=== PATIENT | male | born 2000 | race Hispanic/Latino ===

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

== ENCOUNTER 2025-06-25 16:25 | Emergency (ER) | payer BC ==
--- OUTSIDE RECORDS SUMMARY | 2025-06-25 16:29 | XMS REPORT | Continuity of Care Document ---
Author Name Unknown Address [address] [facility] [address] [place] [address] [facility] [place] Address [address] [facility] [address] [place] [address] Care Team Providers Care Director Money Name Role Phone Naz Staley Primary Care Physician + [phone] Naz Staley Attending Clinician [phone] MURPHY HOWE Attending Clinician Unavailable Murphy Howe MD Attending Clinician [phone] NAZ LEE Attending Clinician Unavailable Alvarez Handley - Luiz Attending Clinician Unavailable JACKSON RAMOS Attending Clinician UnavailROSEMARY Us Attending Clinician Unavailable Rosemary Gayle DO Attending Clinician [phone] MURPHY HOWE Admitting Clinician Unavailable NAZ LEE Admitting Clinician Unavailable Payers Payer Name Policy Type Policy Number Effective Date Expirati on Date Source [facility] 2 [id number] 2022 00:00:00 Problems Condition Name Condition Details Condition Category Status Onset Date Resolution Date Last Treatment Date Treating Clinician Comments Source Biliary dyskinesia Biliary dyskinesia Disease Active 06-02 00:00: 00 [facility] Upper abdominal pain Upper abdominal pain Disease Active 06-02 00:00: 00 [facility] Tonsilliti s Tonsilliti s Disease Active 05-20 00:00: 00 Nohelia dela cruz Allergies, Adverse Reactions, Alerts Allergy Name Allergy Type Status Severity Reaction(s) Onset Date Inactive Date Treating Clinician Comments Source NO KNOWN ALLERGIE S Drug Class Active [facility] Social History Social Habit Start Date Stop Date Quantity Comments Source [facility] Alcoholic beverage intake 2025-05-17 00:00:00 2025-05-17 00:00:00 Ex-drinker (finding) [facility] History of Social function 2025-05-17 00:00:00 2025-05-17 00:00:00 [facility] Tobacco use and exposure 2025-05-17 00:00:00 2025-05-17 00:00:00 Smokeless tobacco non-user [facility] Alcohol intake 2022-07-17 00:00:00 2022-07-17 00:00:00 Lifetime non-drinker (finding) Nohelia Damian - External Education 2022-05-20 00:00:00 2022-05-20 00:00:00 16 Nohelia Damian - External Sex assigned at 2000 00:00:00 2000 00:00:00 [facility] Smoking Status Start Date Stop Date Source Never smoked tobacco [facility] Medications Ordered Medication Name Filled Medication Name Start Date Stop Date Current Medication? Ordering Clinician Indication Dosage Frequency Signature (SIG) Comments Components Source HYDROcodone -acetaminop hen (NORCO 5) 5-325 mg tablet 1 tablet 06-16 17:00: 00 06-16 17:36 :00 No 1{tbl} 1 tablet, Oral, ONCE, 1 dose, On Thu06/16/25 at 1200, Routine, PACU [facility] HYDROmorphO ne (DILAUDID) injection 0.2 mg 06-16 16:45: 11 06-16 22:17 :56 No .2mg 0.2 mg, Slow IV Push, Q5MIN PRN, 10 doses, Starting on Thu06/16/25 at 1145, Until Thu06/16/25 at 1717, Routine, Pain (scale 7-10), PACU, Is this medication approved by a Faculty level provider? 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 Restricted medication : PACU RECOVERY [facility] fentanyl PF (SUBLIMAZE (PF)) injection 25 mcg 06-16 16:45: 11 06-16 22:17 :56 No 25ug 25 mcg, Slow IV Push, Q5MIN PRN, 4 doses, Starting on Thu06/16/25 at 1145, Until Thu06/16/25 at 1717, Routine, Pain Scale 4-6, PACU [facility] Sliding Scale Insulin - Lispro (HumaLOG) 06-16 16:45: 11 06-16 22:17 :56 No Subcutaneo us, PRN - SEE INSTRUCTIO NS, 1 dose, Starting on Thu06/16/25 at 1145, Until Thu06/16/25 at 1717, Routine, PACU [facility] sodium chloride 0.9 % irrigation solution 06-16 15:25: 00 06-16 16:36 :37 No PRN, Starting on Thu06/16/25 at 1025, Until Thu06/16/25 at 1136, Intra-op [facility] bupivacaine -epinephrin e-pf (SENSORCAIN E W/EPINEPHRI NE) 0.25 %-1:200,000 30 mL, lidocaine 1% (PF) (XYLOCAINE) 30 mL 06-16 14:24: 00 06-16 16:36 :37 No PRN, Starting on Thu06/16/25 at 0924, Intra-op [facility] water for irrigation irrigation solution 06-16 14:23: 00 06-16 16:36 :37 No PRN, Starting on Thu06/16/25 at 0923, Until Thu06/16/25 at 1136, Routine, Intra-op [facility] indocyanine green (CARDIO-GRE EN) injection 2.5 mg 06-16 12:45: 00 06-16 13:06 :00 No 2.5mg 2.5 mg, Intravenou s, ONCE, 1 dose, On Thu06/16/25 at 0745, Routine, DSU Pre-op [facility] lactated ringers IV infusion 1,000 mL 06-16 12:45: 00 06-16 12:54 :00 No 1000mL at 42 mL/hr, 1,000 mL, IV Infusion, ONCE, 1 dose, On Thu06/16/25 at 0745, Routine, DSU Pre-op [facility] ibuprofen 800 mg tablet 06-16 00:00: 00 Yes [id number] 800mg Take 1 tablet by mouth every 6 hours as needed for Pain (scale 4-6). [facility] HYDROcodone -acetaminop hen 5-325 mg tablet 06-16 00:00: 00 06-24 04:59 :00 Yes [id number] 1{tbl} Take 1 tablet by mouth every 6 hours as needed for Pain (scale 7-10) for up to 7 days. [facility] iopamidol (ISOVUE 370-500 mL) injection 75 mL 05-29 18:30: 00 05-29 17:36 :00 No [id number] 75mL 75 mL, Intravenou s, ONCE, 1 dose, On Thu05/29/25 at 1330, Routine [facility] tc 99m-mebrofe keesha (CHOLETEC) injection 9 millicurie 05-29 15:45: 00 05-29 15:40 :00 No [id number] 9mCi 9 millicurie , Intravenou s, ONCE, 1 dose, On Thu05/29/25 at 1045, Routine [facility] ondansetron 4 mg tablet 05-17 00:00: 00 06-01 00:00 :00 No [id number] 4mg Take 1 tablet by mouth every 8 hours as needed for Nausea and Vomiting (N/V). [facility] Amoxicillin -Pot Clavulanate 875-125 MG oral Tablet 16 00:00: 00 Yes [id number] 1{tbl} Take 1 tablet by mouth 2 times daily Nohelia dela cruz Tretinoin 0.05 % apply externally Cream 02-21 00:00: 00 Yes Nohelia dela cruz Vital Signs Vital Name Observation Time Observation Value Comments S edmar Systolic blood pressure 2025-06-16 18:15:00 135 mm[Hg] [facility] Diastolic blood pressure 2025-06-16 18:15:00 96 mm[Hg] [facility] Heart rate 2025-06-16 18:15:00 79 /min [facility] Respiratory rate 2025-06-16 18:15:00 18 /min [facility] Oxygen saturation in Arterial blood by Pulse oximetry 2025-06-16 18:15:00 100 /min [facility] Body temperature 2025-06-16 16:31:00 36.22 Jazmin [facility] Body height 2025-06-16 12:47:00 165.1 cm [facility] Body weight 2025-06-16 12:47:00 60.328 kg [facility] BMI 2025-06-16 12:47:00 22.13 kg/m2 [facility] Systolic blood pressure 2025-06-16 17:35:00 134 mm[Hg] [facility] Diastolic blood pressure 2025-06-16 17:35:00 80 mm[Hg] [facility] Heart rate 2025-06-16 17:35:00 92 /min [facility] Respiratory rate 2025-06-16 17:35:00 16 /min [facility] Oxygen saturation in Arterial blood by Pulse oximetry 2025-06-16 17:35:00 100 /min [facility] Body temperature 2025-06-16 16:31:00 36.22 Jazmin [facility] Body height 2025-06-16 12:47:00 165.1 cm [facility] Body weight 2025-06-16 12:47:00 60.328 kg [facility] BMI 2025-06-16 12:47:00 22.13 kg/m2 [facility] Systolic blood pressure 2025-06-01 14:04:00 114 mm[Hg] [facility] Diastolic blood pressure 2025-06-01 14:04:00 77 mm[Hg] [facility] Heart rate 2025-06-01 14:04:00 83 /min [facility] Body temperature 2025-06-01 14:04:00 36.94 Jazmin [facility] Body height 2025-06-01 14:04:00 165.1 cm [facility] Body weight 2025-06-01 14:04:00 60.328 kg [facility] BMI 2025-06-01 14:04:00 22.13 kg/m2 [facility] Oxygen saturation in Arterial blood by Pulse oximetry 2025-06-01 14:04:00 100 /min [facility] Systolic blood pressure 2025-05-25 14:00:00 121 mm[Hg] [facility] Diastolic blood pressure 2025-05-25 14:00:00 77 mm[Hg] [facility] Heart rate 2025-05-25 14:00:00 82 /min [facility] Body temperature 2025-05-25 14:00:00 37 Jazmin [facility] Respiratory rate 2025-05-25 14:00:00 16 /min [facility] Body height 2025-05-25 14:00:00 165.1 cm per patient [facility] Body weight 2025-05-25 14:00:00 59.875 kg [facility] BMI 2025-05-25 14:00:00 21.97 kg/m2 [facility] Oxygen saturation in Arterial blood by Pulse oximetry 2025-05-25 14:00:00 98 /min [facility] Systolic blood pressure 2025-05-17 18:36:00 129 mm[Hg] [facility] Diastolic blood pressure 2025-05-17 18:36:00 88 mm[Hg] [facility] Heart rate 2025-05-17 18:36:00 94 /min [facility] Body temperature 2025-05-17 18:36:00 36.78 Jazmin [facility] Body height 2025-05-17 18:36:00 165.1 cm [facility] Body weight 2025-05-17 18:36:00 60.238 kg [facility] BMI 2025-05-17 18:36:00 22.10 kg/m2 [facility] Oxygen saturation in Arterial blood by Pulse oximetry 2025-05-17 18:36:00 98 /min [facility] Systolic blood pressure 2022-07-17 18:22:00 110 mm[Hg] Nohelia Seybo ld - External Diastolic blood pressure 2022-07-17 18:22:00 58 mm[Hg] Nohelia Seybo ld - External Heart rate 2022-07-17 18:22:00 89 /min Bradleyse y Seybold - External Body temperature 2022-07-17 18:22:00 36.94 Jazmin Nohelia Seybold - External Respiratory rate 2022-07-17 18:22:00 14 /min Nohelia Seybold - External Body height 2022-07-17 18:22:00 165.1 cm Georgiana ey Seybold - External Body weight 2022-07-17 18:22:00 66.225 kg Georgiana ey Seybold - External BMI 2022-07-17 18:22:00 24.30 kg/m2 Georgiana ey Seybold - External Oxygen saturation in Arterial blood by Pulse oximetry 2022-07-17 18:22:00 99 /min Noheliasherry Thomas bold - External Procedures Procedure Date / Time Performed Performing Clinician Source [id number] - MS LAPAROSCOPY SURG CHOLECYSTECTOMY 2025-06-16 13:53:00 Murphy Howe [facility] CT ABDOMEN PELVIS W CONTRAST 2025-05-29 17:36:27 Murphy Howe [facility] HEPATOBILIARY W INTERVENTION 2025-05-29 17:32:00 Murphy Howe [facility] NM HEPATOBILIARY W INTERVENTION 2025-05-29 17:32:00 Murphy Howe [facility] US ABDOMEN LIMITED 2025-05-18 14:25:08 Naz Lee [facility] AMYLASE 2025-05-17 19:39:00 Naz Lee [facility] LIPASE 2025-05-17 19:39:00 Naz Lee [facility] COMP. METABOLIC PANEL ([id number]) 2025-05-17 19:39:00 Naz Lee [facility] CBC WITH DIFF 2025-05-17 19:39:00 [facility] 2025-05-17 19:02:00 Dorothy Lee [facility] POCT MOLECULAR FLU 2025-05-17 18:56:00 Naz Lee [facility] Encounters Start Date/Time End Date/Time Encounter Type Admission Type Attending [facility] Facility Care Department Encounter ID Source 2025-05-23 00:00:00 2025-06-24 18:25:43 Patient Secure Msg Naz Lee [facility] 1.2.840.114 350.1.13.10 4.2.7.2.686 [id number] [facility] 2025-06-16 07:35:00 2025-06-16 13:15:00 Hospital Encounter R MURPHY HOWE [facility] SPIKE [id number] [facility] 2025-06-16 08:55:00 2025-06-16 12:39:00 Surgery Murphy Howe [facility] 1.2.840.114 350.1.13.10 4.2.7.2.686 [id number] [facility] 2025-06-09 00:00:00 2025-06-09 14:48:53 Patient Secure Murphy Neff [facility] NAL BUILDING 1.2.840.114 350.1.13.10 4.2.7.2.686 [id number] [facility] 2025-06-09 00:00:00 2025-06-09 14:04:15 Patient Secure [facility] 1.2.840.114 350.1.13.10 4.2.7.2.686 [id number] [facility] 2025-06-02 00:00:00 2025-06-02 15:39:34 Telephone HoweMurphy [facility] [place] [facility] 1.2.840.114 350.1.13.10 4.2.7.2.686 [id number] [facility] 2025-06-02 00:00:00 2025-06-02 11:12:28 Telephone [facility] 1.2.840.114 350.1.13.10 4.2.7.2.686 [id number] [facility] 2025-06-01 00:00:00 2025-06-01 14:03:01 Patient Secure Msg [facility] 1.2.840.114 350.1.13.10 4.2.7.2.686 [id number] [facility] 2025-06-01 00:00:00 2025-06-01 13:19:49 Patient Secure Msg Murphy Howe [facility] 1.2.840.114 350.1.13.10 4.2.7.2.686 [id number] [facility] 2025-06-01 09:15:00 2025-06-01 09:59:58 Office Visit R Murphy Howe [facility] 1.2.840.114 350.1.13.10 4.2.7.2.686 [id number] [facility] 2025-05-29 09:32:12 2025-05-29 23:59:00 Hospital Encounter R ALONZO MURPHYDARLIN BRASHER [facility] 1.2.840.114 350.1.13.10 4.2.7.2.686 [id number] [facility] 2025-05-29 09:31:59 2025-05-29 09:31:59 Hospital Encounter R MURPHY HOWE [facility] 1.2.840.114 350.1.13.10 4.2.7.2.686 [id number] [facility] 2025-05-29 09:31:48 2025-05-29 09:31:48 Hospital Encounter R MURPHY HOWE [facility] 1.2.840.114 350.1.13.10 4.2.7.2.686 [id number] [facility] 2025-05-25 00:00:00 2025-05-25 17:00:21 Telephone Murphy Howe [facility] 1.2.840.114 350.1.13.10 4.2.7.2.686 [id number] [facility] 2025-05-25 09:00:00 2025-05-25 09:40:45 Office Visit R Murphy Howe [facility] 1.2.840.114 350.1.13.10 4.2.7.2.686 [id number] [facility] 2025-05-22 00:00:00 2025-05-24 12:55:43 Telephone Naz Lee [facility] OFF[facility] BU[facility] 1.2.840.114 350.1.13.10 4.2.7.2.686 [id number] [facility] 2025-05-24 00:00:00 2025-05-24 08:15:11 Patient Secure Msg Naz Lee [facility] OFF[facility] BUILD[facility] 1.2.840.114 350.1.13.10 4.2.7.2.686 [id number] [facility] 2025-05-23 00:00:00 2025-05-23 20:28:18 Telephone Naz Lee [facility] MED[facility] OFFICE BUILDING 1.2.840.114 350.1.13.10 4.2.7.2.686 [id number] [facility] 2025-05-18 08:54:52 2025-05-18 23:59:00 Hospital Encounter R JOHANN LEELIE [facility] 1.2.840.114 350.1.13.10 4.2.7.2.686 [id number] [facility] 2025-05-17 14:30:00 2025-05-17 14:45:00 Mac Developer Visit R Ender, Ang - Db Naz Lee Lab, Ang - Db [facility] MED[facility] OFF[facility] BUILD[facility] 1.2.840.114 350.1.13.10 4.2.7.2.686 [id number] [facility] 2025-05-17 13:30:00 2025-05-17 14:28:40 Office Visit R Naz Lee [facility] MED[facility] OFFICE BUILDING 1.2.840.114 350.1.13.10 4.2.7.2.686 [id number] [facility] 2023-04-01 13:30:00 2023-04-01 13:30:00 Outpatient JACKSON RAMOS [id number] Nohelia Damian 2023-04-01 00:00:00 2023-04-01 00:00:00 Outpatient ROSEMARY GAYLE [id number] [facility] 2023-03-31 15:15:00 2023-03-31 15:15:00 Outpatient JACKSON RAMOS [id number] Nohelia Damian 2022-07-17 13:30:00 2022-07-17 13:30:00 Outpatient ROSEMARY GAYLE [id number] Nohelia Damian 2022-05-20 09:00:00 2022-05-20 09:30:00 Office Visit Rosemary Gayle 1.2.840.114 350.1.13.13 1.2.7.2.686 [id number] Nohelia Damian Results Test Description Test Time Test Comments Results Resul t Comments Source CT Abdomen pelvis w contrast 2025-05-06 5 21:39:48 EXAM: CT ABDOMEN PELVIS W CONTRAST HISTORY: 24 years-old Male; upper abdominal pain. TECHNIQUE: Contiguous axial imaging from the level of the lung basesthrough the proximal thighs was performed with intravenous contrast.Coronal and sagittal reconstructions were obtained. COMPARISON: None FINDINGS: LOWER THORAX: The lung bases are clear. LIVER: The liver is normal in size and contour. No focal hepatic lesion isseen. GALLBLADDER AND BILIARY TREE: The gallbladder appears unremarkable. Noradiopaque gallstones are seen. No intra or extrahepatic biliary ductaldilation is visualized. SPLEEN: The spleen appears unremarkable. PANCREAS: No ductal dilation or masses are visualized. ADRENAL GLANDS: No adrenal masses are seen. KIDNEYS: No hydronephrosis, stones, or suspicious masses are visualized. PELVIS/BLADDER: Reproductive organs are unremarkable. The bladder isadequately distended and appears unremarkable. GI TRACT: No dilation or bowel wall thickening is seen. The appendixappears unremarkable. PERITONEUM AND RETROPERITONEUM: No intra-abdominal free air or fluidcollection is visualized. LYMPH NODES: No lymphadenopathy. VESSELS: The vessels appear unremarkable. BONES AND SOFT TISSUES: No suspicious lytic or sclerotic bony lesions arepresent. [facility] US Abdomen limited 2025-05-05 4 18:28:36 EXAM: US ABDOMEN LIMITED HISTORY: 24 years-old Male with RUQ pain x 3 days . TECHNIQUE: Limited abdominal ultrasound was performed focused on the liver,biliary system, pancreas and spleen. Main portal vein was evaluated withcolor and spectral Doppler imaging. Cream Maker images were obtained forthe record. COMPARISON: None FINDINGS: AORTA:Abdominal aorta is normal in caliber where visualized. Diameter of theproximal abdominal aorta is 1.9 cm. IVC:IVC is normal in appearance where visualized. PANCREAS: The pancreatic head and body display normal echogenicity to the extentvisualized. LIVER: Length: 13.5 cm.Parenchyma/Contou r: Unremarkable.. No focal lesion is detected.Portal vein: Hepatopetal flow present in the main portal vein.MPV diameter: 0.7 cm.MPV velocity: 31.4 cm/s. GALLBLADDER:The gallbladder is distended with length up to 9.2 cm.No cholelithiasis.Jolie l gallbladder wall thickness, 2 mm.Negative Gee's sign.. No evidence of pericholecystic fluid. BILE DUCTS:No intra- or extrahepatic biliary dilatation..Common Duct diameter: 1.3 mm. SPLEEN: The spleen is not evaluated. OTHER: Imaged portions of the right kidney are unremarkable. [facility] Test Item Value Reference Range Interpretation Comme nts LIPASE (test code = 5231812113) 37 U/L 0-220 Lab Interpretation (test cod e = 41111-4) [facility] 03:22:25* Test Item Value Reference Range Interpretation Comme nts LENIN (test code = 0637373874) 63 U/L 35-110 Lab Interpretation (test cod e = 08310-6) Normal [facility] with [id number] 21:10:52* Test Item Value Reference Range Interpretation Comme nts WBC (test code = 6690-2) 6.93 4.20-10.70 RBC (test code = 789-8) 5.3 4.26-5.52 HGB (test code = 718-7) 16.1 g/dL 12.2-16.4 HCT (test code = 4544-3) 46.3 % 38.4-49.3 MCV (test code = 787-2) 87.4 fL 81.7-95.6 MCH (test code = 785-6) 30.4 pg 26.1-32.7 MCHC (test code = 786-4) 34.8 g/dL 31.2-35.0 RDW-SD (test code = 56070-1) 40.2 fL 38.5-51.6 RDW-CV (test code = 788-0) 12.6 % 12.1-15.4 PLT (test code = 777-3) 214 150-328 MPV (test code = 90767-8) 10.5 fL 9.8-13.0 NRBC/100 WBC (test code = 9138339000) 0 0.0-10.0 NRBC x10^3 (test code = 8584578889) See_Comment [Automated messa ge] The system which generated this result transmitted reference range: 10*3/?L. The reference range was not used to interpret this result as normal/abnormal. GRAN MAT (NEUT) % (test code = 770-8) 69 % IMM GRAN % (test code = 8403946819) 0.1 % LYMPH % (test code = 736-9) 22.8 % MONO % (test code = 5905-5) 7.6 % EOS % (test code = 713-8) 0.1 % BASO % (test code = 706-2) 0.4 % GRAN MAT x10^3(ANC) (test code = 0161778735) 4.77 10*3/uL 1.99-6.95 IMM GRAN x10^3 (test code = 7684202093) 0.00-0.06 LYMPH x10^3 (test code = 731-0) 1.58 10*3/uL 1.09-3.23 MONO x10^3 (test code = 742-7) 0.53 10*3/uL 0.36-1.02 EOS x10^3 (test code = 711-2) 0.06-0.53 L BASO x10^3 (test code = 704-7) 0.03 10*3/uL 0.01-0.09 Lab Interpretation (test code = 88571-7) Abnormal [facility] Molecular [id number] 19:12:00* Test Item Value Reference Range Interpretation Comme nts SARS-CoV-2 Rapid ID NOW (test code = 73135-2) Not Detected Not Detected HARRY (test code = HARRY) ID NOW COVID-19 As say is an isothermal nucleic acid amplification test intended for the qualitative detection of nucleic acid from SARS-CoV-2 viral RNA in nasopharyngeal ([employer]RO[employer]IST) specimens. It is used under Emergency Use Authorization (EUA) by FDA. The limit of detection (LOD) of the assay is 125 Genome Equivalents/mL. Please note that a new specimen is requested for testing, if clinically indicated, on tests performed past validated specimen stability time. A positive result is indicative of the presence of SARS-CoV-2 RNA. ?Clinical correlation with patient history and other diagnostic information is necessary to determine patient infection status. A negative (Not Detected) result does not preclude SARS-CoV-2 infection. In patients with a high suspicion of SARS-CoV-2 infection, negative results should be treated as presumptive negative and a new specimen should be tested with alternative nucleic acid amplification molecular test. Indeterminate: Unable to generate a valid test result on this specimen. ?Please collect a new specimen for repeat testing if clinically indicated. Lab Interpretation (test code = 06194-3) [facility] [id number] 19:07:58* Test Item Value Reference Range Interpretation Comme nts POCT Molecular FluA (test co de = 35793-7) Negative Negative POCT Molecular FluB (test co de = 70708-2) Negative Negative Lab Interpretation (test cod e = 87360-3) Normal [facility] History and Physical Notes Date/Time Note Provider Source 2025-06-16 08:59:28 Images from the original note were not included. Surgery Pre-Op Note/Updated History and Physical: Date of Service: 06/16/2025 No changes from H&P from clinic visit dated 05/31/2025 and pasted below. To OR for robotic assisted laparoscopic cholecystectomy possible open. The procedure was discussed with the patient, including risks, benefits, and alternatives, and all questions answered. Consent signed and in chart. The patient reports feeling well and denies any changes in their clinical condition, diagnoses, medications, or surgical history since they were last seen. Brett Melchor MD 06/16/2025 9:00 AM General Surgery PGY 4 GENERAL SURGERY CLINIC NOTE 06/01/2025 Visit Type: Clinic Note / History and Physical Chief Complaint: Abdominal pain HPI Dustin Farnsworth is a 24 year old male with a past medical history including acid reflux, gastritis, abnormal findings of EGD and colonoscopy who presents for evaluation of right upper quadrant abdominal pain and discussion of imaging results. Patient reports that he has experienced 1 episode of right upper quadrant abdominal pain since his previous clinic visit this morning. He rates the pain a 4/10 in severity and lasting approximately 4-5 minutes. He denies eating any fatty/greasy foods prior to the episode. The pain was alleviated by compression of the RUQ with a pillow and use of Tylenol. Additionally, he reports mild RUQ pain with CCK administration during HIDA scan and having an episode of watery diarrhea after the HIDA scan on Thursday. Patient denies any fever, chills, nausea, or vomiting associated with his symptoms. Past Medical History Past Medical History: Diagnosis Date Acid reflux Past Surgical History Past Surgical History: Procedure Laterality Date COLONOSCOPY Family History Family History Problem Relation Age of Onset No Significant Medical Problems Mother No Significant Medical Problems Father Social History Social History Socioeconomic History Marital status: Single Tobacco Use Smoking status: Never Smokeless tobacco: Never Substance and Sexual Activity Alcohol use: Not Currently Drug use: Never Allergies No Known Allergies Current Medications Current Facility-Administered Medications Medication Dose Route Frequency Last Rate Last Admin ceFAZolin (ANCEF) 1,000 mg in NaCl 0.9% (NS) 100 mL V2B IV Piggyback 1,000 mg Intravenous O.R. HOLDING ONCE Sliding Scale Insulin - Lispro (HumaLOG) Subcutaneous PRN - SEE INSTRUCTIONS Review of Systems Constitutional: (-) weight loss, (-) fatigue, (-) fever, (-) chills Cardiovascular: (-) palpitations, (-) chest pain, (-) syncope Respiratory: (-) shortness of breath, (-) cough, (-) hemoptysis Gastrointestinal: (+) abdominal pain, (-) anorexia, (+) nausea, (+) vomiting, (-) diarrhea, (+) constipation, (-) melena, (-) hematochezia Genitourinary: (-) hematuria, (-) dysuria Physical Exam BP 125/85 | Pulse 83 | Temp 36.8 ?C (98.2 ?F) (Temporal Artery) | Resp 21 | Ht 1.651 m (5' 5") | Wt 60.3 kg (133 lb) | SpO2 99% | BMI 22.13 kg/m? Constitutional: alert and oriented, no acute distress EENT: no scleral icterus. Chest: symmetric, no deformities, no chest wall tenderness Respiratory: non labored on room air Cardiovascular: regular rate and rhythm Gastrointestinal: soft, no masses, normal bowel sounds, nontender, nondistended, no rebound or guarding. Negative Gee sign. Skin: no jaundice. GI RECORDS Radiology CT ABDOMEN PELVIS W CONTRAST (05/29/2025) HISTORY: 24 years-old Male; upper abdominal pain. TECHNIQUE: Contiguous axial imaging from the level of the lung bases through the proximal thighs was performed with intravenous contrast. Coronal and sagittal reconstructions were obtained. COMPARISON: None FINDINGS: LOWER THORAX: The lung bases are clear. LIVER: The liver is normal in size and contour. No focal hepatic lesion is seen. GALLBLADDER AND BILIARY TREE: The gallbladder appears unremarkable. No radiopaque gallstones are seen. No intra or extrahepatic biliary ductal dilation is visualized. SPLEEN: The spleen appears unremarkable. PANCREAS: No ductal dilation or masses are visualized. ADRENAL GLANDS: No adrenal masses are seen. KIDNEYS: No hydronephrosis, stones, or suspicious masses are visualized. PELVIS/BLADDER: Reproductive organs are unremarkable. The bladder is adequately distended and appears unremarkable. GI TRACT: No dilation or bowel wall thickening is seen. The appendix appears unremarkable. PERITONEUM AND RETROPERITONEUM: No intra-abdominal free air or fluid collection is visualized. LYMPH NODES: No lymphadenopathy. VESSELS: The vessels appear unremarkable. BONES AND SOFT TISSUES: No suspicious lytic or sclerotic bony lesions are present. IMPRESSION No abnormality to explain patient's symptoms. HEPATOBILIARY SCAN (05/29/2025) CLINICAL HISTORY: RUQ abdominal pain, US nondiagnostic . COMPARISON: Abdominal pain. TECHNIQUE: The patient received an intravenous injection of 9 mCi technetium 99m mebrofenin and sequential images of the abdomen were obtained over one hour. Additional 30 minutes sequential images were obtained after the oral administration of ensure FINDINGS: Normal hepatic uptake and biliary excretion. Gallbladder is visualized normally with filling noted at 11 minutes. There is normal biliary to bowel transit. Gallbladder ejection fraction was 20%. IMPRESSION Reduced gallbladder ejection fraction suggestive for biliary dyskinesia. Assessment Dustin Mario Farnsworth is a 24 year old male with a past medical history including acid reflux and gastritis who presents for evaluation of right upper quadrant abdominal pain and discussion of imaging results. HIDA scan finding of gallbladder ejection fraction of 20%, gallbladder hydrops on ultrasound, and intermittent RUQ pain occasionally associated with consumption of fatty/greasy foods are suggestive of biliary colic due to biliary dyskinesia. In 2021 he was worked up for epigastric abdominal pain by Dr. Deleon and was found to have gastritis with linear erosions, duodenitis with ulcerations in the duodenal bulb with stenosis. Biopsies were performed and demonstrated esophagitis with eosinophils, gastropathy, and mild duodenal intraepithelial lymphocytosis, H. Pylori was negative. He was treated medically with antacids and a repeat EGD was performed which demonstrated gastritis, resolution of ulcers, improved duodenitis, improved pyloric stenosis. Pathology was unremarkable. He also underwent colonoscopy which demonstrated an erosion in the ascending colon, pathology was unremarkable. We discussed that his current symptoms are most likely secondary to biliary dyskinesia however due to his prior history discussion with his GI may be beneficial, including repeating EGD. He would like to discuss his options with his family first before making a decision regarding surgery. Plan - Discussed diagnosis of biliary dyskinesia and definitive treatment with elective robotic-assisted laparoscopic cholecystectomy. The risks, benefits and alternatives for surgical intervention as well as the postoperative recovery expectations were discussed. All questions were answered. - Patient will discuss his options as to whether consult with his Software Test Specialist prior to cholecystectomy with his family and call office when he is ready to schedule surgery. GENO Alfonso-S2 General Surgery Attending Attestation: I personally evaluated and examined the patient on 06/01/2025 and agree with RASTA Wing's note as written and subsequently edited by me. Murphy Howe M.D. 06/16/2025 09:00 Cosigned by Murphy Howe MD at 06/16/2025 9:02 AM CDT Associated attestation - Murphy Howe MD - 06/16/2025 9:02 AM CDT Attending Attestation: I personally evaluated and examined the patient on 06/16/[address] Melchor's note as written. I actively participated in the decision-making process. Please see the resident's note for additional details. No interval changes, patient continues with intermittent upper abdominal pain, surgery consent signed and in chart, proceed with robotic assisted laparoscopic cholecystectomy. Murphy Howe M.D. 06/16/2025 09:01 SURGERY [facility] Notes Date/Time Note Provider Source 2025-06-16 11:06:36 Called Mei to give her surgery update and that the next call will come from Recovery. No questions or concerns at this time. Verbalized understanding. Tierney Reina RN [facility] 2025-06-16 10:02:46 Called mother, Mei, to give surgery update. No questions or concerns at this time. Will call if more than an hour with surgery update. Mei verbalized understanding. [facility] 2025-06-16 09:55:21 FULL OPERATIVE NOTE Date of Surgery: 06/16/2025 Preoperative diagnosis: Upper abdominal pain, biliary dyskinesia Postoperative diagnosis: Upper abdominal pain, biliary dyskinesia Procedure: Robotic assisted laparoscopic cholecystectomy Surgeons: Faculty: Murphy Howe M.D. Resident: Brett Melchor M.D. Anesthesiologist: Meghna Nagy M.D. Anesthesia: General endotracheal intubation EBL: 5 mL Sponge, needle, and instrument count: Correct at the end of the case X2 Packs, drains: None Specimen: Gallbladder Findings: Distended gallbladder, chronic cholecystitis, critical view of safety achieved Complications: None Indications: Dustin Farnsworth is a 24 year old male who presented with a complaint of upper quadrant abdominal pain. Clinical and radiological evidence demonstrated biliary dyskinesia. Diagnosis and treatment options were discussed with the patient, the patient wished to proceed with surgery. Procedure in detail: Risks, benefits, alternatives were explained to the patient; all questions were answered; and informed consent was obtained. 2.5 mg of Indocyanine Green (ICG) was given in Pre-Op Holding. The patient was then brought to the operating room and placed in the supine position on the operating room table. IV sedation and general anesthesia with endotracheal intubation was performed by Anesthesia without difficulty. Preoperative antibiotics were administered prior to skin incision. SCD's were placed, initiated before induction, and used throughout the operative procedure. The patient's right arm was padded and tucked. The patient s abdomen was then prepped and draped in the standard sterile fashion. A time out was performed verifying patient data, allergies, and planned procedure prior to skin incision. A small skin incision was made at [place] and access was obtained using a Veress needle. The abdomen was then insufflated to 15 mm mercury with CO2 with no hemodynamic consequences. An 8 mm robotic trocar was used to Optiview into the abdomen above and to the left of the umbilicus under direct visualization using the 5 mm zero degree camera. Additional trocars were placed under direct visualization and after the use of 0.25% Marcaine with epinephrine mixed in a 1:1 ratio with 1% Lidocaine with epinephrine for local anesthesia: one in the left upper quadrant and two in the right abdomen. The table was then placed in the reverse trendelenburg position at 15 degrees and rotated 5 degrees to the left. The robot was then docked. The gallbladder was noted to be distended. The dome of the gallbladder was grasped with Cadiere forceps and retracted cephalad while the infundibulum was retracted inferolaterally with the fenestrated bipolar. The cystic duct and artery were dissected free from surrounding tissue using a robotic hook. Dissection continued until the critical view of safety was was achieved with the cystic duct and cystic artery clearly going into the gallbladder with the liver visible posteriorly. The cystic duct was further confirmed using Firefly. Attention was first turned to the cystic duct. Two Hem-o-loc clips were placed across the distal cystic duct, one clip was placed across the proximal cystic duct close to the infundibulum. The cystic duct was then divided. Attention was then turned to the cystic artery. Two Hem-o-loc clips were placed across the proximal cystic artery, one clip was placed across the distal cystic artery close to the gallbladder wall. The cystic artery was then divided. The gallbladder was then removed from its peritoneal attachments in a retrograde fashion using robotic hook electrocautery and then placed in an endoscopic retrieval bag. The patient's right upper quadrant was then copiously irrigated with sterile saline, all irrigation was suctioned out. The liver was carefully elevated and inspected for hemostasis, small bleeding points were controlled with electrocautery. The clips across the cystic duct and cystic artery were noted to be intact without evidence of bile leakage or bleeding. The robot was then undocked. The endoscopic retrieval bag containing the gallbladder was removed from the periumbilical trocar site. The fascia at the periumbilical trocar site was then closed using an 0-PDS endo stitch. The pneumoperitoneum was evacuated and the secondary trocars were removed. All skin incisions were irrigated with sterile saline. All skin incisions were then closed using 4-0 Monocryl in a subcuticular fashion. Dermabond was applied to all skin incisions. The patient was then awakened from general anesthesia, extubated in the operating room, and then transferred to the recovery room in satisfactory condition. The counts were correct at the end of the case. The patient received no blood products. Dr. Howe was present and scrubbed for the entirety of the operative procedure. Murphy Howe M.D. 06/16/2025 11:24 [facility] 2025-06-08 15:14:43 Images from the original note were not included. Your general surgery procedure is at [facility] on 06/16/25. The address is [address] [place] [id number] [facility] nursing staff will call you the workday prior to surgery/procedure between 12-3 pm with your arrival time. When you arrive, please come inside and sign in at the desk. -Please note: You may not travel home alone and that includes in a taxi or by bus. We must speak to your Responsible Adult (who will be picking you up) the morning of your procedure, before the start of your procedure. This person must be an adult over the age of 18 years of age. -Do not eat anything after midnight the night before your surgery/procedure or eight hours before, whichever is longer. -May have 8-16 oz of water/clear liquids each hour after midnight, as desired, until two hours prior to arrival to promote hydration. -No eye makeup or false eyelashes. No lotions, powders, or perfumes. No antiperspirant/deodorant for breast or shoulder surgeries. Nothing in hair except elastic band if needed. -You may take your medications with a sip of water as directed by physician. Anticoagulants: Other medication Note(s)/Instructions:No scheduled medications. -Pending screening, we may test for COVID. If a patient tests positive, their cases are cancelled and/or rescheduled. COVID SCREENING NOTE: Denies COVID symptoms, no testing required. -Additional requests, questions, concerns:none Patient verbalized understanding of pre-op instructions and voiced no further questions at this time. CB number and availability provided. [facility] 2025-06-02 16:09:35 Case posted. [facility] [place][NOTE 2] Azeb Dubose RN [facility] 2025-06-02 15:35:33 /Patient called to schedule cholecystectomy. Case request for submitted. [facility] 2025-06-02 15:00:57 Patient called back requesting for 06/16/25 [facility] [place][NOTE 2] Yokasta Lennon [facility] 2025-06-02 14:39:59 We can offer 06/14, 06/16, 06/20, and 06/27. I left him a VM, please let me know what date he picks so we can do a case request. [facility] 2025-06-02 11:10:38 Images from the original note were not included. Patient would like to proceed with surgery. Azeb Dubose RN [facility] 2025-06-02 10:21:50 Patient would like to continue with surgery plan as discussed. Please advise Yokasta Dela Cruz [facility] 2025-06-01 09:15:00 Addended by: AZEB DUBOSE on: 06/02/2025 03:45 PM Modules accepted: Orders Azeb Dubose RN [facility] 2025-05-25 16:57:10 Colonoscopy report scanned into patient chart ready for review Yokasta Dela Cruz [facility] 2025-05-24 12:54:50 Patient has went general sx trrw. Verbalized understanding of [providers recommendations. [facility] 2025-05-24 11:11:05 Result note sent with recommendations. If having worsening or severe pain, f/c, n/v go to the ED. Referred to general surgery. Please avoid the nuggets and pizza. [facility] 2025-05-22 15:42:24 Patient states pain continues at about a 6/10 to RUQ. Patient has n/v after eating nuggets, pizza, and jello. Instructed patient on BRAT diet and to avoid foods that are greasy, fried, and sugary. Instructed on ER/UC precautions. Awaiting on next step after US. IMPRESSION Gallbladder hydrops. Otherwise, normal ultrasound of the liver and biliary system. [facility] 2025-05-22 11:32:14 Copied from [facility] #[id number]. 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 He would like a call back regarding this. Please advise Moon Nava [facility] 2025-05-17 14:30:00 Images from the original note were not included. Venipuncture collection performed by clean technique on the left anticubitus. Total of 1 attempts were made. Slight pressure and a bandage/dressing were applied to the site(s). The patient experienced no complications. The following specimens were processed according to instructions and sent to [facility] laboratories per lab order on 05/17/2025 : LT BLUE SST RED LAV 1 PPT DK GREEN (LiHep) DK GREEN (SodH) FARNSWORTH DK BLUE (K2) DK BLUE (S) ACD Blood Culture NIPT/NTD 1 lt green T [facility]
[2025-06-25] MEDS ORDERED: MORPHINE 4 MG/ML SYR ONE (17:08)
[2025-06-25] MEDS ORDERED: NA CHLORIDE 0.9% 1,000 ML ONE (17:08)
[2025-06-25] MEDS ORDERED: FAMOTIDINE 20 MG/2 ML VIAL IV ONE (17:08)
[2025-06-25] MEDS ORDERED: ONDANSETRON 4 MG/2 ML VIAL ONE (17:08)
[2025-06-25 17:26] LABS: Absolute Lymphocytes (CBC) 1.6 K/uL (0.7-4.9); Hematocrit 47.6 % (39.6-49.0); Hemoglobin 16.4 g/dL (13.6-17.9); MCH 29.0 pg (27.0-35.0); MCHC 34.6 g/dL (32.0-36.0); MCV 84.0 fL (80-100); MPV 8.1 fL (7.6-11.3); Nucleated RBC Absolute Count 0.1 (0-0); Nucleated Red Blood Cells % 0.8 % (0-0); RBC Red Blood Cell Count 5.66 M/uL (4.33-5.43); White Blood Count 6.30 thou/uL (4.3-10.9)
[2025-06-25 17:29] LABS: ALT/SGPT 54 U/L (16-61); Albumin 4.6 g/dL (3.4-5.0); Albumin/Globulin Ratio 1.2 (1.1-1.8); Alkaline Phosphatase 96 U/L (45-117); Anion Gap 10.4 mEq/L (5.0-15.0); BUN Blood Urea Nitrogen 12 mg/dL (7-18); Globulin 4.0 g/dL (2.3-3.5); Glucose Level 108 mg/dL (74-106); Lipase 25 U/L (13-75); Potassium 3.4 mEq/L (3.5-5.1)
[2025-06-25 17:32] LABS: AST/SGOT < 10 U/L (15-37)
--- NOTE | 2025-06-25 18:24 | RAD REPORT ---
EXAMINATION: Abdomen Pelvis W Contrast CLINICAL INDICATION: Male, 24 years old.ABD PAIN TECHNIQUE: CT abdomen and pelvis was performed, after the administration of IV contrast, as per [facility] protocol. Axial, sagittal and coronal reconstructions were obtained. One or more of the following dose reduction techniques were used: Automated exposure control, adjustment of the mA and/o r kV according to patient size, and/or iterative reconstruction. Unless otherwise specified, incidental findings do not require dedicated imaging follow-up. [id number]. COMPARISON: No prior exams FINDINGS: LOWER CHEST: No acute process identified.No significant pericardial effusion. UPPER GI: No significant abnormality. LIVER: No significant focal abnormality. GALLBLADDER/BILE DUCTS: Recent cholecystomy. Trace fluid at the gallbladder fossa which is not unexpe cted. Common bile duct measures 8 mm which is mildly dilated.? PANCREAS: No mass, ductal dilation, or camille-pancreatic fluid. SPLEEN: Unremarkable. ADRENALS: No adrenal masses. KIDNEYS AND URETERS: No hydronephrosis.No suspicious renal mass. ABDOMINAL AORTA AND OTHER VESSELS: Normal caliber aorta and IVC. PERITONEUM: No abnormal free fluid. No free air. LYMPH NODES: No pathologic lymphadenopathy. ABDOMINAL WALL: Unremarkable SMALL BOWEL/COLON: Small bowel has normal course and caliber. No colonic wall thickening or pericolon ic inflammatory changes.Normal appendix. URINARY BLADDER: Underdistended but grossly unremarkable. REPRODUCTIVE ORGANS: No pathologic process. MUSCULOSKELETAL: No acute or suspicious osseous abnormality. ADDITIONAL FINDINGS: None. IMPRESSION: No definite acute findings within the abdomen or pelvis. Surgical changes from recent cholecystectomy . Trace free fluid at the gallbladder fossa which is not unexpected. The common bile duct measures 7 mm which is mildly dilated. Consider MRCP to exclude choledocholithiasis.
[2025-06-25] MEDS ORDERED: FENTANYL CITR 100 MCG/2 ML ONE (19:16)
--- NOTE | 2025-06-25 19:20 | RAD REPORT ---
Abdomen Exam Limited: 06/25/2025 6:37 PM CLINICAL HISTORY: post amelie. pls measure CBD;Abd pain STUDY: Limited right upper quadrant ultrasound of abdomen. COMPARISON: Same-day CT FINDINGS: Liver: Limited evaluation but grossly unremarkable. Bile ducts: Common bile duct measures 6 mm which is mildly dilated. Gallbladder: Surgically absent. IMPRESSION: Cholecystectomy. Common bile duct at 6 mm is mildly dilated for patient's age.
--- NOTE | 2025-06-25 19:47 | EDPHYS ---
Physician Documentation [facility] Name: Dustin Farnsworth Age: 24 yrs Sex: Male : 2000 Arrival Date: 06/25/2025 Time: 16:25 Bed 15 Private MD: ED Physician Jesus Jones HPI: 06/25 16:52 This 24 yrs old Male presents to ER via Ambulatory with complaints of sb4 Abdominal Pain. 16:52 Patient states that he underwent laparoscopic cholecystectomy about 1 week ago sb4 secondary to a dysfunctioning gallbladder. He states that when they removed it he was told there was a lot of sludge in it. He states that his pain h had been improving and he was tolerating p.o., however yesterday his pain came back and it was quite severe and he has been experiencing nausea and vomiting as well. States that he had a near syncopal episode as well. His follow-up appointment is tomorrow. Historical: - Allergies: 16:37 No Known Allergies; hb - Home Meds: 16:37 None [Active]; hb - PMHx: 16:37 Gastric Ulcers; hb - PSHx: 16:37 Cholecystectomy; hb - Immunization history:: Adult Immunizations up to date. - Infectious Disease History:: Denies. - Social history:: Smoking status: unknown. ROS: 18:54 Constitutional: Negative for fever, chills, and weight loss, sb4 18:54 Abdomen/GI: Positive for abdominal pain, nausea and vomiting, 18:54 All other systems are negative, Exam: 18:54 Head/Face: Normocephalic, atraumatic. Eyes: Extra-ocular motions intact. Periorbital sb4 areas with no swelling, redness, or edema. ENT: Mucous membranes moist. Cardiovascular: Regular rate and rhythm with a normal S1 and S2. Respiratory: No increased work of breathing, no retractions or nasal flaring. Abdomen/GI: Soft, non-tender, no distension. Skin: Warm, dry with normal turgor. Normal color with no rashes, no lesions, and no evidence of cellulitis. 18:54 Constitutional: The patient appears alert, awake, uncomfortable, 18:54 Abdomen/GI: Inspection: scar(s), Laparoscopic incision sites healing well, Vital Signs: 16:36 BP 146 / 91; Pulse 96; Resp 18; Temp 99.1(O); Pulse Ox 100% on R/A; Weight 60.33 kg; hb Height 5 ft. 5 in. ; Pain 7/10; 17:05 BP 130 / 97; Pulse 78; Resp 16; Pulse Ox 100% on R/A; db 19:00 BP 134 / 93; Pulse 82; Resp 16; Pulse Ox 100% on R/A; kb4 20:00 BP 101 / 70; Pulse 75; Resp 16; Pulse Ox 100% on R/A; kb4 16:36 Body Mass Index 22.13 (60.33 kg, 165.1 cm) hb 16:36 Pain Scale: Adult hb MDM: 16:38 Medical Screening Exam initiated sb4 19:46 Data reviewed: vital signs, nurses notes, lab test result(s), radiologic studies, I sb4 have discussed the patient's presentation/case with the attending Emergency Department Physician; and as a result, I will discharge patient. Counseling: I had a detailed discussion with the patient and/or guardian regarding the historical points, exam findings, and any diagnostic results supporting the discharge/admit diagnosis, lab results, radiology results, the need for outpatient follow up, a general surgeon, to return to the emergency department if symptoms worsen or persist or if there are any questions or concerns that arise at home. Special discussion: Based on the patient's Hx, exam, and Dx evaluation, there is no indication for emergent surgery or inpatient Tx. It is understood by the patient/guardian that if the Sx's persist or worsen they need to return immediately for re-evaluation. ED course: Patient states his pain is improved. CT and ultrasound of abdomen show a mildly CBD, but no stone was identified and vascular ultrasound technologist was able to visualize it all the way to the pancreas. Mild dilatation is normal status post cholecystectomy. He is tolerating p.o. and has an appointment with his surgeon tomorrow. I will discharge him home at this time with a copy of his results and a prescription for pain medication if needed. He is in agreement with plan. 19:48 Consideration of Admission/Observation Escalation of care including sb4 admission/observation considered. 06/25 16:50 Order name: CBC with Diff; Complete Time: 17:31 sb4 06/25 16:50 Order name: CMP; Complete Time: 17:32 sb4 06/25 16:50 Order name: Lipase; Complete Time: 17:32 sb4 06/25 16:50 Order name: CT Abd/Pelvis - IV Contrast Only; Complete Time: 18:26 sb4 06/25 18:37 Order name: Abdomen Limited US; Complete Time: 19:22 sb4 06/25 16:50 Order name: IV Saline Lock; Complete Time: 18:06 sb4 06/25 16:50 Order name: Labs collected and sent; Complete Time: 18:06 sb4 06/25 18:27 Order name: PO challenge; Complete Time: 18:38 sb4 Administered Medications: 17:10 Drug: Famotidine IVP 20 mg IVP once; dilute with 10 mL 0.9% NaCl; give over 2 minutes db Route: IVP; Site: right antecubital; 20:16 Follow up: Response: No adverse reaction kb4 17:10 Drug: Ondansetron IVP 4 mg IVP once; over 2 minutes Route: IVP; Site: right antecubital;db 20:17 Follow up: Response: No adverse reaction kb4 17:10 Drug: morphine IVP or IV 4 mg IVP once over 4 mins Route: IVP; Infused Over: 4 mins; db Site: right antecubital; 20:17 Follow up: Response: No adverse reaction kb4 17:10 Drug: NS 0.9% IV 1000 ml IV at 1 bolus Per protocol; to be given as a bolus over 60 db minutes Route: IV; Rate: 1 bolus; Site: right antecubital; 20:16 Follow up: Response: No adverse reaction kb4 20:16 Follow up: IV Status: Completed infusion kb4 19:35 Drug: fentaNYL (PF) IVP 50 mcg IVP once Route: IVP; Site: right antecubital; kb4 20:06 Follow up: Response: No adverse reaction kb4 20:16 Drug: Hydrocodone-Acetaminophen PO (7.5 mg-325 mg) 1 tabs PO once Route: PO; kb4 20:16 Follow up: Response: Medication Administered at Departure kb4 Disposition: 06/26 07:03 Co-signature as Attending Physician, Jesus Jones MD I reviewed the patient's care rn provided by the Advanced Practice Provider and agree with the diagnosis and treatment plan. Disposition Summary: 06/25/25 19:47 Discharge Ordered Notes: Location: Home sb4 Condition: Stable sb4 Diagnosis - Upper abdominal pain, unspecified sb4 Followup: sb4 - With: Emergency Department - When: As needed - Reason: Trouble breathing, Worsening of condition Followup: sb4 - With: Private Physician - When: Tomorrow - Reason: Recheck today's complaints, Re-evaluation by your physician Discharge Instructions: - Discharge Summary Sheet sb4 - Abdominal Pain, Adult sb4 Forms: - Prescription Opioid Use sb4 - Patient Portal Instructions sb4 - Leadership Thank You Letter sb4 Prescriptions: - ondansetron 4 mg Oral Tablet,disintegrating - take 1 tablet ORAL route every 6 hours as needed for nausea and vomiting; 10 sb4 tablet; Refills: 0, Product Selection Permitted - Tylenol-Codeine #3 300mg-30mg Oral tablet - take 1 tablet ORAL route every 4 hours As needed; 16 tablet; Refills: 0, sb4 Product Selection Permitted Signatures: Dispatcher [employer] EDMS Jesus Jones MD MD rn Baxter, Heather, RN RN Kymberly Mcnamara RN RN db Brown, Sophia, PA-C PA-C sb4 Gail Kay RN RN kb4 Corrections: (The following items were deleted from the chart) 06/25 16:51 16:51 CBC+H.LAB.BRZ ordered. EDPR EDMS 16:51 16:51 COMPREHENSIVE METABOLIC PANEL+C.LAB.BRZ ordered. EDPR EDMS 16:51 16:51 LIPASE+C.LAB.BRZ ordered. EDPR EDMS 16:51 16:51 Abdomen Pelvis W Con+CT.RAD.BRZ ordered. EDPR EDMS 19:08 18:55 Independent interpretation of the following test(s) in the Emergency Department sb4 CT Scan: My interpretation is Head CT images -no intracranial bleed. sb4 19:08 18:55 Differential diagnosis: Close head injury, concussion, gastroenteritis, skull sb4 fracture, reflux sb4 19:08 18:55 Historians other than the Patient: Parent: mom and dad. sb4 sb4
--- NOTE | 2025-06-25 19:47 | ER ---
Nurse's Notes [facility] Name: Dustin Farnsworth Age: 24 yrs Sex: Male : 2000 Arrival Date: 06/25/2025 Time: 16:25 Bed 15 Private MD: Diagnosis: Upper abdominal pain, unspecified Presentation: 06/25 16:36 Chief complaint: Had cholecystectomy 1 week ago at [facility], reports worsening RUQ pain hb that started yesterday. Coronavirus screen: At this time, the client does not indicate any symptoms associated with coronavirus-19. Ebola Screen: No symptoms or risks identified at this time. Initial Sepsis Screen: Does the patient meet any 2 criteria? No. Patient's initial sepsis screen is negative. Does the patient have a suspected source of infection? No. Patient's initial sepsis screen is negative. Risk Assessment: Do you want to hurt yourself or someone else? Patient reports no desire to harm self or others. Onset of symptoms was June 18, 2025. 16:36 Method Of Arrival: Ambulatory hb 16:36 Acuity: WENDI 3 hb Historical: - Allergies: 16:37 No Known Allergies; hb - Home Meds: 16:37 None [Active]; hb - PMHx: 16:37 Gastric Ulcers; hb - PSHx: 16:37 Cholecystectomy; hb - Immunization history:: Adult Immunizations up to date. - Infectious Disease History:: Denies. - Social history:: Smoking status: unknown. Screenin:28 [facility] ED Fall Risk Assessment (Adult) History of falling in the last 3 months, db including since admission No falls in past 3 months (0 pts) Confusion or Disorientation No (0 pts) Intoxicated or Sedated No (0 pts) Impaired Gait No (0 pts) Mobility Assist Device Used No (0 pt) Altered Elimination No (0 pt) Score/Fall Risk Level 0 - 2 = Low Risk Oriented to surroundings, Maintained a safe environment. Abuse screen: Denies threats or abuse. Denies injuries from another. Nutritional screening: No deficits noted. Tuberculosis screening: No symptoms or risk factors identified. Assessment: 17:26 Reassessment: Patient appears in no apparent distress at this time. Patient and/or db family updated on plan of care and expected duration. Pain level reassessed. Patient is alert, oriented x 3, equal unlabored respirations, skin warm/dry/pink. General: Appears in no apparent distress. comfortable, Behavior is calm, cooperative. Pain: Complains of pain in abdomen. Neuro: Level of Consciousness is awake, alert, obeys commands, Oriented to person, place, time, situation. Respiratory: Airway is patent Respiratory effort is even, unlabored, Respiratory pattern is regular, symmetrical. GI: Bowel sounds present X 4 quads. Abd is soft. 18:38 Reassessment: PATIENT PROVIDED WATER AND CRACKERS FOR PO CHALLENGE. db 20:24 Reassessment: Patient and/or family updated on plan of care and expected duration. Pain kb4 level reassessed. Patient is alert, oriented x 3, equal unlabored respirations, skin warm/dry/pink. pain improved some, will seek follow up care tomorrow for post surgical appointment with [facility]. Vital Signs: 16:36 BP 146 / 91; Pulse 96; Resp 18; Temp 99.1(O); Pulse Ox 100% on R/A; Weight 60.33 kg; hb Height 5 ft. 5 in. ; Pain 7/10; 17:05 BP 130 / 97; Pulse 78; Resp 16; Pulse Ox 100% on R/A; db 19:00 BP 134 / 93; Pulse 82; Resp 16; Pulse Ox 100% on R/A; kb4 20:00 BP 101 / 70; Pulse 75; Resp 16; Pulse Ox 100% on R/A; kb4 16:36 Body Mass Index 22.13 (60.33 kg, 165.1 cm) hb 16:36 Pain Scale: Adult hb ED Course: 16:29 Patient arrived in ED. ts1 16:34 Yudelka Hartman PA-C is PHCP. sb4 16:34 Jesus Jones MD is Attending Physician. sb4 16:37 Triage completed. hb 16:58 Kymberly Patino, RN is Primary Nurse. db 16:58 Arm band placed on Patient placed in an exam room. db 17:05 Initial lab(s) drawn, by me, sent to lab. Inserted saline lock: 20 gauge in right db antecubital area, using aseptic technique. Blood collected. Flushed with 10 mL NS. 17:17 Patient has correct armband on for positive identification. Bed in low position. Call db light in reach. Side rails up X 1. Pulse ox on. NIBP on. Warm blanket given. Pillow given. 18:[address] db 18:14 CT Abd/Pelvis - IV Contrast Only In Process Unspecified. EDMS 19:15 Abdomen Limited US In Process Unspecified. EDMS 20:25 Provided Education on: d/c instructions . kb4 20:25 No provider procedures requiring assistance completed. IV discontinued, intact, kb4 bleeding controlled, No redness/swelling at site. Pressure dressing applied. Administered Medications: 17:10 Drug: Famotidine IVP 20 mg IVP once; dilute with 10 mL 0.9% NaCl; give over 2 minutes db Route: IVP; Site: right antecubital; 20:16 Follow up: Response: No adverse reaction kb4 17:10 Drug: Ondansetron IVP 4 mg IVP once; over 2 minutes Route: IVP; Site: right antecubital;db 20:17 Follow up: Response: No adverse reaction kb4 17:10 Drug: morphine IVP or IV 4 mg IVP once over 4 mins Route: IVP; Infused Over: 4 mins; db Site: right antecubital; 20:17 Follow up: Response: No adverse reaction kb4 17:10 Drug: NS 0.9% IV 1000 ml IV at 1 bolus Per protocol; to be given as a bolus over 60 db minutes Route: IV; Rate: 1 bolus; Site: right antecubital; 20:16 Follow up: Response: No adverse reaction kb4 20:16 Follow up: IV Status: Completed infusion kb4 19:35 Drug: fentaNYL (PF) IVP 50 mcg IVP once Route: IVP; Site: right antecubital; kb4 20:06 Follow up: Response: No adverse reaction kb4 20:16 Drug: Hydrocodone-Acetaminophen PO (7.5 mg-325 mg) 1 tabs PO once Route: PO; kb4 20:16 Follow up: Response: Medication Administered at Departure kb4 Medication: 17:17 VIS not applicable for this client. db Outcome: 19:47 Discharge ordered by . sb4 20:25 Discharged to home ambulatory, kb4 20:25 Condition: good 20:25 Discharge instructions given to patient, family, Instructed on discharge instructions, follow up and referral plans. medication usage, Demonstrated understanding of instructions, follow-up care, medications, 20:28 Patient left the ED. kb4 Signatures: Dispatcher [employer] EDMS Nataly Espitia, RN RN Kymberly Patino, RN RN Yudelka Chaidez, VAMSHI BONDS sb4 Uzma Lilly PAS PAS ts1 Gail Kay, LAVON RN kb4
[2025-06-25] MEDS ORDERED: HYDROCODONE/APAP 7.5/325 MG TAB ONE (20:08)
[2025-06-25 20:33] VITALS: TEMP 99.1; O2SAT 100
[2025-06-25 20:38] VITALS: BP 101/70
== END 2025-06-25 20:28 | disposition home or self-care (01) ==
LOC: ER 16:25
DX: R10.10 Upper abdominal pain, unspecified (principal); R55 Syncope and collapse; R11.2 Nausea with vomiting, unspecified; Z98.890 Other specified postprocedural states; Z90.49 Acquired absence of other specified parts of digestive tract
CPT/HCPCS: 96361; 85025; 36415; 83690; 80053; 74177; 76705; 96375; 96374; 99285; Q9967; J3010; J2405; J7030